=== PATIENT | male | born 1965 | race Caucasian/White ===

== ENCOUNTER 2018-09-26 10:33 | Outpatient (CLI) | payer MEDICAID, SELFPAY ==
--- NOTE | 2018-09-26 10:30 | DI.RAD_ITS ---
SYMPTOM/DIAGNOSIS: LOCKING AND CLICKING RT KNEE, LT FOR COMPARISON RIGHT KNEE: The joint spaces are well maintained. No joint effusion is seen. A small calcification is seen in the distal patellar tendon, near the tibial tubercle. IMPRESSION: No acute abnormality. MERCHANT VIEWS BOTH KNEES: The joint spaces are well maintained. There is minimal periarticular spurring. The patella appear normally positioned bilaterally.
== END 2018-09-26 10:53 ==
PROVIDERS: PCP Nurse Practitioner; Visit Provider Student in an Organized Health Care Education/Training Program
DX: M25.561 Pain in right knee (principal); M23.91 Unspecified internal derangement of right knee
CPT/HCPCS: 73560; 73564

== ENCOUNTER 2019-08-03 14:35 | Outpatient (CLI) | payer BC, SELFPAY ==
[2019-08-03 16:08] LABS: ALT 44 U/L (16-63); AST 21 U/L (15-37); Albumin 4.3 g/dL (3.4-5.0); Alkaline Phosphatase 87 U/L (46-116); BUN 13 mg/dL (7-18); Bilirubin, Total 0.9 mg/dL (0.2-1.0); CREATININE 1.12 mg/dL (0.70-1.30); Calcium 8.6 mg/dL (8.5-10.1); Chloride 102 mmol/L (98-107); Glucose 89 mg/dL (74-106); Potassium 4.3 mmol/L (3.5-5.1); Sodium 140 mmol/L (136-145)
== END 2019-08-03 14:55 ==
PROVIDERS: PCP Nurse Practitioner Adult Health; Visit Provider Nurse Practitioner Adult Health
DX: I10 Essential (primary) hypertension (principal)
CPT/HCPCS: 36415; 80053

== ENCOUNTER 2021-10-08 16:52 | Outpatient (REF) | payer BC, SELFPAY ==
[2021-10-08 19:47] LABS: Anion Gap 7.1 mmol/L (3-11); BUN 18 mg/dL (7-18); CO2 28.9 mmol/L (21.0-32.0); CREATININE 1.1 mg/dL (0.70-1.30); Calcium 8.6 mg/dL (8.5-10.1); Calculated LDL 112 mg/dL (<100); Chloride 105 mmol/L (98-107); Cholesterol 184 mg/dL (<200); Glucose 95 mg/dL (74-106); HDL Cholesterol 54 mg/dL (40-60); Potassium 4.3 mmol/L (3.5-5.1); Sodium 141 mmol/L (136-145); Triglyceride 93 mg/dL (<150)
== END 2021-10-08 16:53 | disposition home or self-care (01) ==
LOC: LBN 16:52
PROVIDERS: PCP Nurse Practitioner Adult Health; Visit Provider Nurse Practitioner Adult Health
DX: I10 Essential (primary) hypertension (principal); Z13.1 Encounter for screening for diabetes mellitus; Z13.220 Encounter for screening for lipoid disorders
CPT/HCPCS: 80048; 80061

== ENCOUNTER 2022-04-29 10:33 | Emergency (ER) | payer OTHER, SELFPAY ==
[2022-04-29] VITALS (41 sets, daily range): BP systolic 107–134; BP diastolic 63–95; PULSE 53–81; RESP 8–20; TEMP 36.5; O2SAT 95–100
--- NOTE | 2022-04-29 10:30 | DI.MRI_ITS ---
Exam(s) MR ANGIO BRAIN WO MR BRAIN WO MR ANGIO NECK WO EXAM: MR BRAIN WO and MRA of the neck and MRA of the brain CLINICAL HISTORY: tia TECHNIQUE: Multiplanar multisequence MRI of the brain was performed. COMPARISON: MR MR ANGIO BRAIN WO from 04/29/2022 MR MR ANGIO NECK WO from 04/29/2022 FINDINGS: VENTRICLES AND EXTRA AXIAL SPACES: Normal in size and morphology for the patient's age. MIDLINE SHIFT: None. CEREBRAL PARENCHYMA: No focus of restricted diffusion to suggest acute infarct. No space-occupying le javi identified. HEMORRHAGE: None. BRAINSTEM/CEREBELLUM: Normal. CALVARIUM: Normal. VISUALIZED PARANASAL SINUSES/MASTOIDS:Clear. EEK OF GALVAN: Normal flow void. PITUITARY GLAND: Unremarkable. OTHER FINDINGS: None. MRA of the neck: Common Carotid: Right: No dissection, occlusion or significant stenosis. Left: No dissection, occlusion or significant stenosis. External Carotid: Right: No evidence of occlusion or significant stenosis. Left: No evidence of occlusion or significant stenosis. Internal Carotid: Right: No dissection, occlusion or significant stenosis. Left: No dissection, occlusion or significant stenosis. Vertebral Artery: Right: No dissection, occlusion or significant stenosis. Left: No dissection, occlusion or significant stenosis. MRA of the [id number]: Carotid Arteries: No aneurysm, occlusion or significant stenosis. Anterior Cerebral Arteries: Right: No aneurysm, occlusion or significant stenosis. Left: No aneurysm, occlusion or significant stenosis. Middle Cerebral Arteries: Right: No aneurysm, occlusion or significant stenosis. Left: No aneurysm, occlusion or significant stenosis. Posterior Cerebral Arteries: Right: No aneurysm, occlusion or significant stenosis. Left: No aneurysm, occlusion or significant stenosis. Vertebral Arteries: Right: No aneurysm, occlusion or significant stenosis. Left: No aneurysm, occlusion or significant stenosis. Basilar Artery: No aneurysm, occlusion or significant stenosis. IMPRESSION: 1. Unremarkable MRI of the brain. 2. No occlusion or significant stenosis on the MRA of the neck or brain. 3. Findings were discussed with the emergency department at 12:07 p.m. on 04/29/2022. DATA REPOSITORY:
--- NOTE | 2022-04-29 10:30 | DI.MRI_ITS ---
Exam(s) MR ANGIO BRAIN WO MR BRAIN WO MR ANGIO NECK WO EXAM: MR BRAIN WO and MRA of the neck and MRA of the brain CLINICAL HISTORY: tia TECHNIQUE: Multiplanar multisequence MRI of the brain was performed. COMPARISON: MR MR ANGIO BRAIN WO from 04/29/2022 MR MR ANGIO NECK WO from 04/29/2022 FINDINGS: VENTRICLES AND EXTRA AXIAL SPACES: Normal in size and morphology for the patient's age. MIDLINE SHIFT: None. CEREBRAL PARENCHYMA: No focus of restricted diffusion to suggest acute infarct. No space-occupying le javi identified. HEMORRHAGE: None. BRAINSTEM/CEREBELLUM: Normal. CALVARIUM: Normal. VISUALIZED PARANASAL SINUSES/MASTOIDS:Clear. [place] OF GALVAN: Normal flow void. PITUITARY GLAND: Unremarkable. OTHER FINDINGS: None. MRA of the neck: Common Carotid: Right: No dissection, occlusion or significant stenosis. Left: No dissection, occlusion or significant stenosis. External Carotid: Right: No evidence of occlusion or significant stenosis. Left: No evidence of occlusion or significant stenosis. Internal Carotid: Right: No dissection, occlusion or significant stenosis. Left: No dissection, occlusion or significant stenosis. Vertebral Artery: Right: No dissection, occlusion or significant stenosis. Left: No dissection, occlusion or significant stenosis. MRA of the [id number]: Carotid Arteries: No aneurysm, occlusion or significant stenosis. Anterior Cerebral Arteries: Right: No aneurysm, occlusion or significant stenosis. Left: No aneurysm, occlusion or significant stenosis. Middle Cerebral Arteries: Right: No aneurysm, occlusion or significant stenosis. Left: No aneurysm, occlusion or significant stenosis. Posterior Cerebral Arteries: Right: No aneurysm, occlusion or significant stenosis. Left: No aneurysm, occlusion or significant stenosis. Vertebral Arteries: Right: No aneurysm, occlusion or significant stenosis. Left: No aneurysm, occlusion or significant stenosis. Basilar Artery: No aneurysm, occlusion or significant stenosis. IMPRESSION: 1. Unremarkable MRI of the brain. 2. No occlusion or significant stenosis on the MRA of the neck or brain. 3. Findings were discussed with the emergency department at 12:07 p.m. on 04/29/2022. DATA REPOSITORY:
--- NOTE | 2022-04-29 10:30 | DI.MRI_ITS ---
Exam(s) MR ANGIO BRAIN WO MR BRAIN WO MR ANGIO NECK WO EXAM: MR BRAIN WO and MRA of the neck and MRA of the brain CLINICAL HISTORY: tia TECHNIQUE: Multiplanar multisequence MRI of the brain was performed. COMPARISON: MR MR ANGIO BRAIN WO from 04/29/2022 MR MR ANGIO NECK WO from 04/29/2022 FINDINGS: VENTRICLES AND EXTRA AXIAL SPACES: Normal in size and morphology for the patient's age. MIDLINE SHIFT: None. CEREBRAL PARENCHYMA: No focus of restricted diffusion to suggest acute infarct. No space-occupying le javi identified. HEMORRHAGE: None. BRAINSTEM/CEREBELLUM: Normal. CALVARIUM: Normal. VISUALIZED PARANASAL SINUSES/MASTOIDS:Clear. [place] OF GALVAN: Normal flow void. PITUITARY GLAND: Unremarkable. OTHER FINDINGS: None. MRA of the neck: Common Carotid: Right: No dissection, occlusion or significant stenosis. Left: No dissection, occlusion or significant stenosis. External Carotid: Right: No evidence of occlusion or significant stenosis. Left: No evidence of occlusion or significant stenosis. Internal Carotid: Right: No dissection, occlusion or significant stenosis. Left: No dissection, occlusion or significant stenosis. Vertebral Artery: Right: No dissection, occlusion or significant stenosis. Left: No dissection, occlusion or significant stenosis. MRA of the [id number]: Carotid Arteries: No aneurysm, occlusion or significant stenosis. Anterior Cerebral Arteries: Right: No aneurysm, occlusion or significant stenosis. Left: No aneurysm, occlusion or significant stenosis. Middle Cerebral Arteries: Right: No aneurysm, occlusion or significant stenosis. Left: No aneurysm, occlusion or significant stenosis. Posterior Cerebral Arteries: Right: No aneurysm, occlusion or significant stenosis. Left: No aneurysm, occlusion or significant stenosis. Vertebral Arteries: Right: No aneurysm, occlusion or significant stenosis. Left: No aneurysm, occlusion or significant stenosis. Basilar Artery: No aneurysm, occlusion or significant stenosis. IMPRESSION: 1. Unremarkable MRI of the brain. 2. No occlusion or significant stenosis on the MRA of the neck or brain. 3. Findings were discussed with the emergency department at 12:07 p.m. on 04/29/2022. DATA REPOSITORY:
--- NOTE | 2022-04-29 10:45 | RT.EKG_ITS ---
APPROVED REPORT Exam: Resting ECG Reason for Exam: headache numbness right leg and arm Patient Location: E HR:57 bpm ECG Measurements Heart Rate 57 AXIS NM 169 P 61 QRSd 97 QRS 40 QT 423 T 38 QTc 412 Conclusion Sinus bradycardia...rate< 60
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
[2022-04-29 10:55] LABS: Source Nasal/Nares
--- NOTE | 2022-04-29 10:56 | NUR.NOTE ---
Nursing Note: PT TO MRI, UNABLE TOGET EKG PRIOR TO MRI D/T MRI SCHEDULE. PT W/O CHEST PAIN, PROVIDER AWARE.
[2022-04-29 10:58] LABS: Abs Immature Grans 0.02 10^3/uL (0.0-0.06); Absolute Basophil Count 0.03 10^3/uL (0.0-0.2); Absolute Eosinophil Count 0.15 10^3/uL (0.0-0.7); Absolute Lymphocyte Count 1.35 10^3/uL (1.2-3.4); Absolute Monocyte Count 0.61 10^3/uL (0.1-0.8); Absolute Neutrophil Count 3.12 10^3/uL (1.2-6.7); Basophils % 0.6; Eosinophils % 2.8; HCT 42.9 % (40.0-50.0); HGB 14.2 g/dL (13.5-17.5); Immature Grans % 0.4; Lymphocytes % 25.6; MCH 29.5 pg (27.0-33.0); MCHC 33.1 % (32.0-36.0); MCV 89 fL (80-95); MPV 11.2 fL (8.0-11.0); Monocytes % 11.6; Platelet Count 174 10^3/uL (130-400); RBC 4.82 10^6/uL (4.36-5.78); RDW 12.2 % (11.8-14.1); RDW-SD 39.8 fL; WBC 5.28 10^3/uL (4.4-10.8)
[2022-04-29 11:11] LABS: Prothrombin Time 10.5 sec (9.3-11.0)
[2022-04-29 11:22] LABS: ALT 19 U/L (16-63); AST 16 U/L (15-37); Albumin 4.1 g/dL (3.4-5.0); Alkaline Phosphatase 123 U/L (46-116); Anion Gap 5.1 mmol/L (3-11); BUN 10 mg/dL (7-18); Bilirubin, Total 0.6 mg/dL (0.2-1.0); CO2 31.9 mmol/L (21.0-32.0); CREATININE 1.1 mg/dL (0.70-1.30); Calcium 8.7 mg/dL (8.5-10.1); Chloride 103 mmol/L (98-107); Estimated GFR 78.79 (mL/min/1.73m2); Glucose 76 mg/dL (74-106); Magnesium 2.3 mg/dL (1.8-2.4); Potassium 3.9 mmol/L (3.5-5.1); Sodium 140 mmol/L (136-145); Total Protein 7.1 g/dL (6.4-8.2); Troponin I < 50 ng/L (<or=60)
[2022-04-29 11:34] LABS: COVID-19 PCR Negative (Negative)
--- NOTE | 2022-04-29 11:58 | NUR.NOTE ---
Nursing Note: PT RETURN FROM MRI, STATES 'FEELS SOME NUMBNESS IN LEFT SIDE' EKG DONE AT THIS TIME.
[2022-04-29] MEDS: Ketorolac 15 MG/ML VIAL IVP (12:21)
--- NOTE | 2022-04-29 12:29 | NUR.NOTE ---
Nursing Note: PT MEDICATED FOR C/O SCOTT, PROVIDER IN TO SEE PT PER REQUEST, CONT. TO MONITOR.
--- NOTE | 2022-04-29 12:49 | NUR.NOTE ---
Nursing Note: PT STATES SCOTT HAS IMPROVED W/TORADOL, DENIES ANY CHANGE OR NEW SYMPTOMS AT THIS TIME, AWAITING CARDIAC ECHO AT 1PM, CONT. TO MONITOR.
--- NOTE | 2022-04-29 13:47 | NUR.NOTE ---
Nursing Note: ECHO COMPLETED, PT DENIES CURRENT COMPLAINTS, STATES SCOTT HAS IMPROVED, AWAITING ECHO RESULTS, CONT. TO MONITOR.
[2022-04-29 14:51] LABS: Troponin I < 50 ng/L (<or=60)
== END 2022-04-29 15:27 | disposition home or self-care (01) ==
PROVIDERS: Emergency Provider Emergency Medicine; PCP Nurse Practitioner Adult Health
DX: R20.0 Anesthesia of skin (principal); R20.2 Paresthesia of skin; Z20.822 Contact with and (suspected) exposure to COVID-19
CPT/HCPCS: 36415; 70544; 70547; 80053; 87635; 93005; 96374; 99284; 70551; 83735; 84484; 85025; 85610; 85730; 93010; 93306; 99285; J1885

== ENCOUNTER 2022-05-08 13:01 | Outpatient (CLI) | payer OTHER, SELFPAY ==
[2022-05-08 13:22] LABS: ESR < 1 mm/hr (0-20)
[2022-05-08 14:19] LABS: C-Reactive Protein < 0.05 mg/dL (0.0-0.3)
[2022-05-08 14:57] LABS: Folate 15.9 ng/mL (8.6-20.0); Vitamin B12 641 pg/mL (193-986)
[2022-05-12 11:13] LABS: Lyme Ab w Rflx to Lyme Confirm Negative (Negative)
[2022-05-14 10:41] LABS: Thiamine (Vitamin B1), WB 112 nmol/L (70-180)
[2022-05-14 18:21] LABS: Anaplasma phagocytophilum Negative (Negative); B. miyamotoi PCR Negative (Negative); Babesia divergens/MO-1 Negative (Negative); Babesia duncani Negative (Negative); Babesia microti Negative (Negative); Ehrlichia chaffeensis Negative (Negative); Ehrlichia ewingii/canis Negative (Negative); Ehrlichia muris eauclairensis Negative (Negative)
== END 2022-05-08 13:02 | disposition home or self-care (01) ==
LOC: LBO 13:03
PROVIDERS: PCP Nurse Practitioner Adult Health; Visit Provider Nurse Practitioner Adult Health
DX: R20.2 Paresthesia of skin (principal); M79.2 Neuralgia and neuritis, unspecified; M54.16 Radiculopathy, lumbar region; L98.8 Other specified disorders of the skin and subcutaneous tissue; R51.9 Headache, unspecified; I10 Essential (primary) hypertension; G45.9 Transient cerebral ischemic attack, unspecified
CPT/HCPCS: 36415; 85652; 87798; 82607; 82746; 84425; 86140; 86618

== ENCOUNTER 2022-05-13 12:03 | Outpatient (REF) | payer OTHER, SELFPAY ==
--- NOTE | 2022-05-13 11:25 | SKI_PTH ---
PATIENT: Lc Hoyt LOC: [facility] U#:[id number] AGE/SX: 56/M ROOM: RE05/13/[address]: Say Bruce MD : 1965 BED: DIS: 05/13/2022 SPEC #: [id number] RECD: 05/13/22 14:41 STATUS: CAITLYN REQ #: [id number] BROOK: 05/13/22 11:[address]: Say Bruce DEPT: Surgical Specimen RECD BY: Sadia Ramírez ENTERED: 05/13/22 14:42 SP TYPE: TINO LUNA DR: Lara Simeon APRN Tissues: 1 - SKIN BIOPSY(SHAVE/PUNCH) Procedures: SKIN LEVEL 4 Comments: [id number]
== END 2022-05-13 12:04 | disposition home or self-care (01) ==
LOC: LBN 12:03
PROVIDERS: PCP Nurse Practitioner Adult Health; Visit Provider Surgery
DX: L73.8 Other specified follicular disorders
CPT/HCPCS: 88305

== ENCOUNTER 2024-01-07 14:21 | Outpatient (CLI) | payer OTHER, SELFPAY ==
[2024-01-07 11:15] LABS: Hemoglobin A1C 5.5 % (<5.7)
[2024-01-07 11:16] LABS: ALT 21 U/L (16-63); AST 15 U/L (15-37); Albumin 4.1 g/dL (3.4-5.0); Alkaline Phosphatase 107 U/L (46-116); Anion Gap 4.9 mmol/L (3-11); BUN 15 mg/dL (7-18); CO2 30.1 mmol/L (21.0-32.0); Calcium 8.8 mg/dL (8.5-10.1); Calculated LDL 115 mg/dL (<100); Chloride 105 mmol/L (98-107); Cholesterol 190 mg/dL (<200); Estimated GFR 87.24 (mL/min/1.73m2); Glucose 91 mg/dL (74-106); HDL Cholesterol 69 mg/dL (40-60); Potassium 4.1 mmol/L (3.5-5.1); Sodium 140 mmol/L (136-145); TSH (W/Ref FT4) 2.09 uIU/mL (0.36-3.74); Total Protein 7.1 g/dL (6.4-8.2); Triglyceride 31 mg/dL (<150)
--- OUTSIDE RECORDS SUMMARY | 2024-01-07 14:23 | XMS_ITS | Encounter Summary ---
Author Organization [facility] Address [address] [place] [address] Care Team Providers Care Safety Specialist Name Role Phone Unknown, Provider Primary Care Provider Encounter Details Date Type Department Care Team (Late st Contact Info) Description 05/14/2022 Lab Requisition [facility] Pathology & Laboratory Medicine - [address] [phone] Say Bruce MD [address] [place] [address], [address] [place], [place] [id number] Neoplasm of uncertain behavior of skin Social History Tobacco Use Types Packs/Day Years Used Date Smoking Tobacco: Never Assessed Sex and Gender Information Value Date Recorded Sex Assigned at Not on file Gender Identity Not on file Sexual Orientation Not on file documented as of this encounter Plan of Treatment Not on file documented as of this encounter Procedures Procedure Name Priority Date/Time Associated Diagnosis Comments SURGICAL PATHOLOGY Today 05/13/2022 11 :25 EST Neoplasm of uncertain behavior of skin documented in this encounter Results * SURGICAL PATHOLOGY (05/13/2022 11:25 EST) Note to Patient The following pathology results have been interpreted by your pathologist and may be available to you before your health provider has had the opportunity to review them. Please allow time for your provider to receive these results and explore management options, if applicable. 05/19/2022 10:34 EST [facility] Final Diagnosis A. SKIN OF FOREARM, RIGHT, EXCISION: - Dilated and distorted follicle with rupture. 05/19/2022 10:34 EST [facility] Attestation By the signature below, the attending physician certifies that they have 1) personally conducted a gross and/or microscopic examination of the described specimen(s), and/or personally interpreted the results of laboratory testing of the described specimen(s), and 2) personally rendered or confirmed the above diagnosis. 05/19/2022 10:34 [facility] at 1034 Clinical History Skin lesion suture @ proximal 05/19/2022 10:34 [facility] Gross Description A. Received in formalin labelled with proper patient identification (initials H, K) and R forearm is an oriented elliptical excision of ross-brown hair-bearing skin with a suture designating proximal, however the requisition does not state where on the right forearm the specimen is from, thus the suture is arbitrarily designated as 12 o'clock. The specimen measures 1.8 cm from 12 o'clock to 6 o'clock, 0.8 cm from 9 o'clock to 3 o'clock, and is excised to a depth of 0.5 cm. There is a central roughly circular raised ross-white area that measures 0.5 x 0.5 cm. The 3 o'clock margin is inked blue and the 9 o'clock margin is inked black. The specimen is serially sectioned from 12 o'clock to 6 o'clock and is entirely submitted as follows: BLOCK ROSE A1- 12 o'clock tip, reverse en face A2-A3- 5 central sections A4- 6 o'clock tip, reverse en face SERGEY AGUIRRE 05/15/2022 8:19 05/19/2022 10:34 [facility] Performing Lab [facility] 05/19/2022 10:34 [facility] Scanned Images 05/19/2022 10:34 [facility] Tissue TISSUE SPECIMEN FROM SKIN / Unknown 05/13/2022 11:25 EST 05/14/2022 15:35 EST Say Bruce MD PATHOLOGY ORDERABLES [facility] [address] [place] [address] documented in this encounter Visit Diagnoses Diagnosis Neoplasm of uncertain behavior of skin documented in this encounter Care Teams Safety Specialist Relationship Specialty Start Date End Date Unknown, Provider, PCP - General 04/16/22 documented as of this encounter
--- OUTSIDE RECORDS SUMMARY | 2024-01-07 14:23 | XMS_ITS | Encounter Summary ---
Author Organization [facility] Address [address] [place] [address] Care Team Providers Care Recycling Collections Driver Name Role Phone Unknown, Provider Primary Care Provider [phone] Encounter Details Date Type Department Care Team (Late st Contact Info) Description 01/07/2024 Lab Requisition [facility] Pathology & Laboratory Medicine - [address] [address] Outr Resulting Lab, Provider Social History Tobacco Use Types Packs/Day Years Used Date Smoking Tobacco: Never Assessed Sex and Gender Information Value Date Recorded Sex Assigned at Not on file Gender Identity Not on file Sexual Orientation Not on file documented as of this encounter Plan of Treatment Scheduled Orders Name Type Priority Associated Diagnoses Orde r Schedule HEPATITIS C AB W REFLEX TO H CV RNA BY PCR Lab Routine Ordered: 024 PSA TOTAL, DIAGNOSTIC Lab Routine Ord ered: 01/07/2024 documented as of this encounter Visit Diagnoses Not on filedocumented in this encounter Care Teams Recycling Collections Driver Relationship Specialty Start Date End Date Unknown, Provider, PCP - General 04/16/22 documented as of this encounter
--- OUTSIDE RECORDS SUMMARY | 2024-01-07 14:23 | XMS_ITS | Encounter Summary ---
Author Organization [facility] [place] [address] Care Team Providers Care Nutritional Services Cook Name Role Phone Lara Simeon APRN Primary Care Provider [phone] Reason for Visit * Reason Comments Travel Consult Encounter Details Date Type Department Care Team (Late st Contact Info) Description 11/03/2012 2:30 PM EDT Office [place] [phone] Jazzmine Jerez RN Foreign travel (Primary Dx); Healthcare maintenance Discharge Disposition: Home Social History Tobacco Use Types Packs/Day Years Used Date Smoking Tobacco: Never Sex and Gender Information Value Date Recorded Sex Assigned at Not on file Gender Identity Not on file Sexual Orientation Not on file documented as of this encounter Last Filed Vital Signs Vital Sign Reading Time Taken Comments Blood Pressure 135/91 11/03/2012 2:38 PM EDT Pulse 93 11/03/2012 2:38 PM EDT Temperature 36.6 ??C (97.8 ??F) 11/03/2012 2:38 PM ED T Respiratory Rate 16 11/03/2012 2:38 PM EDT Oxygen Saturation - - Inhaled Oxygen Concentration - - Weight - - Height - - Body Mass Index - - documented in this encounter Patient Instructions * Patient Instructions* Jazzmine Jerez RN - 11/03/2012 4:07 PM EDT Today, you received the following vaccines: [] Flu shot (recommended annually) [] TDaP (good for 10 years) [] Td (good for 10 years) [] Hepatitis A* (first dose good for 6 months, need a booster anytime after 6 months) [] Hepatitis B* (series is a total of 3) [x] IPV (polio - this is your adult lifetime booster) [] Meningococcal meningitis [] Pneumococcal [] Rabies* (series is a total of 3, Day 1, Day 7, and Day 21) [x] Yellow fever (good for 10 yrs. Keep your yellow card w/ you when traveling as proof) [] Ukrainian Encephalitis* (series of 2, Day 1 and Day 28) [x] Typhoid IM (good for 2-3 years) [] Typhoid oral (Take 1 capsule every other day on am empty stomach x 4 doses. Keep in fridge. Goodfor 5 years) (x) Twinrix *Please remember to schedule your follow-up boosters, if indicated. Call us at [phone] to schedule an appointment for these vaccines. Today, you were also prescribed a medication for malaria prevention. [] Malarone - Start taking 1 day prior to travel to malaria risk area. Take daily while there and for 7 more additional days thereafter. Take this medication with food. [x] Mefloquine or Chloroquine - Start 1 week prior to travel to a malaria risk area. Take once weekly while there and for 4 additional weeks thereafter. [] Doxycycline - Start 1 day prior to travel to malaria risk area. Take daily while there and for 28 additional days thereafter. Additional Recommendations/Instructions: We recommend a tuberculin skin test (TST) to screen for tuberculosis exposure about 2 - 3 months after your trip. Call us at [phone] to book this upon your return. Have a great trip! documented in this encounter Progress Notes * Jesus Reyez MD - 11/04/2012 3:22 PM EDT I agree with the recommendations of Jazzmine Jerez after review of her note. * Jazzmine Jerez RN - 11/03/2012 2:50 PM EDT Adult Travel Clinic Reason for Visit: Lc Hoyt is a 46 y.o. old patient who comes to travel clinic today for pre-travel evaluation, vaccination and traveler's health education. Trip Details: Destination countries (list from first to last): [facility] Departure date: 12/03/2012 Length of trip: 2 weeks Purpose of travel: orphanage and school; massage therapy; mission Type of environment (urban or rural): more rural Accommodations: staying in orphanage; will use mosquito net Medical History: Medical problems: healthy Immunosuppression: No recent steroid use; chemotherapy or other immunosuppresion. History of adverse vaccine reactions: None. History of latex allergy: None. Medications: Current Outpatient Prescriptions Medication Sig Dispense Refill ??? lisinopril-hydrochlorothiazide (PRINZIDE;ZESTORETIC) 10-12.5 mg per tablet Take 1 tablet by mouth daily. ??? FOLIC ACID/VITAMIN B COMP W-C (B-COMPLEX WITH VITAMIN C ORAL) Allergies: Review of patient's allergies indicates no known allergies. Patient advised to carry all medications in carry on luggage. Travel Health and Safety Issues: A discussion of travel health hazards and safety issues was done, including the following topics: (x) Traffic-accidents (alcohol, seatbelts) (x) Crime (x) Alcohol related issues (x) Sun exposure/heat illness (x) Schistosomiasis and other fresh water exposures (x) Rabies (x) HIV infections, Hepatitis (x) TB (x) Health insurance coverage/[employer] (x) Other: embassy information Discussed food and water precautions and patient handout provided. The following strategies were recommended for the management of traveler's diarrhea according to severity: For treatment of mild diarrhea: hydration and over the counter antidiarrheal recommended. For treatment of diarrhea accompanied by fever or systemic illness: hydration and empiric treatmentwith antibiotic recommended. A prescription for cipro, twice daily for three days,sent to [facility] in [facility]. For severe or bloody diarrhea, or diarrhea accompanied by vomiting: patient advised to seek medicaltreatment. Vector-borne Disease Prevention Discussed insect bite prevention to reduce risk of malaria, dengue and other insect borne illnesses. Handout given. Malaria Risk: (x) Significant risk of malaria on this itinerary. Discussed malaria chemoprophylaxis and possible side effects. Prescription for: mefloquine was sent to [facility] in [facility]; Took mefloquine for a past trip to [place] and tolerated well Altitude: (x) This trip does not involve high altitude. . Follow-up Recommendations: A recommendation was made that the patient have a tst placed about 3 months after returning from this trip. The patient may either call the travel clinic or get this done through their primary career advisor. Patient advised to call travel clinic if they return from trip with any illness. Time spent in travel counselin min Note written by JAZZMINE JEREZ RN Travel Clinic Immunization History and Orders Immunizations Last dose Give today Give at future date Tetanus/diphtheria (0.5 ml IM) 05/17/2004 Td refused Tdap MMR (0.5 ml IM) MMR Refused dose #2; (may have had) Polio (0.5 ml SC) Primary series 11/03/2012 Hepatitis A (Adult-1.0 ml IM) (Pedi-0.5 ml IM) 1. 2. 1. 2. Immune serum globulin (specify route/dose) Hepatitis B (adult-1 ml IM X 3) (pedi-0.5 ml IM X 3) 1. 2. 3. 1. 2. 3. Twinrix (Hep A/B) (1.0 ml IM) 1.11/03/2012 2. 3. 1. 2.one month (will contact PCP office) 3.6 months (PCP office) Typhoid (specify route/dose) 11/03/2012 IM Yellow fever (0.5 ml IM) 11/03/2012 Meningococcal (0.5 ml IM) Rabies (specify type/dose) 1.discussed actions to take if exposed; not sure if he has evacuation insurance- will look into it 2. 3. 1. 2. 3. Ukrainian Encephalitis 1. 2. 3. 1. 2. 3. Influenza (0.5 ml IM) Did not have; does not believe in flu shot; education provided Pneumovax (0.5 ml IM) Other: PPD (Mantoux) (0.1 ml ID) Will have post travel PPD Vaccine information sheets given. documented in this encounter Plan of Treatment Not on file documented as of this encounter Visit Diagnoses Diagnosis Foreign travel- Primary Other specified conditions influencing health status Healthcare maintenance Routine general medical examination at a health care facility documented in this encounter Care Teams Nutritional Services Cook Relationship Specialty Start Date End Date Lara Simeon APRN [address] [place] [address] PCP - General 10/17/12 documented as of this encounter
--- OUTSIDE RECORDS SUMMARY | 2024-01-07 14:23 | XMS_ITS | Encounter Summary ---
[place] [address] Care Team Providers Care Acid Recovery Operator Name Role Phone Lara Simeon APRN Primary Care Provider [phone] Reason for Referral * Diagnostic Test (Routine) - Closed Specialty Diagnoses / Procedures Referred By Damian joseph Referred To Contact Cardiology Diagnoses TIA (transient ischemic attack) Procedures Mobile Shawn Ramos MD [address] [place] [address] [place] [address] [facility] [place] [address] Referral ID Status Reason Start Date Expiration Date V isits Requested Visits Authorized [id number] Closed Specialty Service Requested 04/29/2022 04/29/2023 1 1 Reason for Visit * Diagnostic Test (Routine) - Closed Specialty Diagnoses / Procedures Referred By Contac t Referred To Contact Cardiology Diagnoses TIA (transient ischemic attack) Procedures Mobile Shawn Ramos MD [address] [place] [address] [place] [address] [facility] [place] [address] Referral ID Status Reason Start Date Expiration Date V isits Requested Visits Authorized [id number] Closed Specialty Service Requested 04/29/2022 04/29/2023 1 1 Encounter Details Date Type Department Care Team (Latest Contact Info) Description 04/29/2022 2:18 PM EST - 04/29/2022 11:59 PM EST Hospital Encounter [place] [address] Shawn Hurtado MD [address] [place] [address] [place] [id number] TIA (transient ischemic attack) Discharge Disposition: Home Social History Tobacco Use Types Packs/Day Years Used Date Smoking Tobacco: Never Sex and Gender Information Value Date Recorded Sex Assigned at Not on file Gender Identity Not on file Sexual Orientation Not on file documented as of this encounter Medications at Time of Discharge Medication Sig Dispensed Refills Start Date End Date lisinopril (PRINIVIL;ZESTRIL) 10 mg Tablet Take 10 mg by mouth daily. atovaquone-proguanil (MALARONE) 250-100 mg Tablet Take 1 tablet by mouth daily. Start day before travel to risk area, daily while there & for 7 days after 22 tablet 0 05/15/2014 FOLIC ACID/VITAMIN B COMP W-C (B-COMPLEX WITH VITAMIN C ORAL) 02/13/2009 documented as of this encounter Plan of Treatment Not on file documented as of this encounter Procedures Procedure Name Priority Date/Time Associated Diagnosis Comments ECHO COMPLETE Routine 04/29/2022 2:58 PM EST TIA (transient ischemic attack) documented in this encounter Results * ECHO COMPLETE (04/29/2022 2:58 PM EST) Pathologist [facility] EF 60 HEARTLAB SYSTEM Anatomical Region Laterality Modality Other 04/29/2022 12:3 9 PM EST Narrative 04/29/2022 3:02 PM EST ? Echocardiogram Report Name: ION GROVER ? Study Date: 04/29/2022 12:39 PMBP: 127/80 mmHg ? Patient Location: 4A [facility] : 1965 ? Height: 173 cm ? Account: [id number] Age: 56 yrs ? Weight: 73 kg Gender: Male ?BSA: 1.9 m2 Ordering Physician: GENESIS^SHAWN^Nilay Referring Physician: SHAWN HURTADO Performed By: NATALI Reason For Study: Stroke Exam Location: [facility]. Interpretation Summary -Technically limited study due to equipment/settings. -Left ventricular systolic function is normal. Left ventricular ejection fraction is estimated visually at 60%. There are no segmental wall motion abnormalities. -The right ventricle is of normal size. Right ventricular systolic function is normal. -There is mild tricuspid regurgitation. -See report for additional findings. No comparison study is available. Procedure Complete-[id number]. An agitated saline bubble contrast study was performed. This study is limited because of body habitus. Suboptimal quality. Left Ventricle Left ventricle is of normal size. Wall thickness is normal. There is no ventricular septal defect. Left ventricular systolic function is normal. Left ventricular ejection fraction is estimated visually at 60%. There are no segmental wall motion abnormalities. Right Ventricle The right ventricle is of normal size. Right ventricular systolic function is normal. Left Atrium The left atrium is normal. No abnormality of the interatrial septum is identified. There is no evidence for a patent foramen ovale visualized with agitated saline. Right Atrium The right atrium is normal. Aortic Valve The aortic valve is structurally normal. There is no aortic stenosis. There is no aortic regurgitation. Mitral Valve The mitral valve is structurally normal. There is no mitral stenosis. There is trace mitral regurgitation. Tricuspid Valve The tricuspid valve is structurally normal. There is no tricuspid stenosis. There is mild tricuspid regurgitation. Pulmonic Valve The pulmonic valve is not well visualized. There is no valvular pulmonic stenosis. There is no pulmonic valve regurgitation. Great Arteries The aortic root is of normal size. No abnormalities are identified. The ascending aorta is not well visualized. The pulmonary artery is not well visualized. Venous Inferior vena cava is normal in size. Inferior vena cava collapse greater than 50% with respiration. Pericardium/Pleural The pericardium appears normal. Hemodynamics Left ventricular diastolic function is normal. The estimated right atrial pressure is 3mmHg. The peak right ventricular systolic pressure is 20 mmHg. Left ventricular diastolic function is normal. Ejection Fraction ?2D Measurements ? Volumes LV Biplane EF: 57.6 % ? IVSd: 1.0 cm ? EDV Biplane: 97.2 ml ?LVPWd: 1.0 cm ?EDV Biplane Index: 52.1 ? ESV Biplane: 41.2 ml ? ESV Biplane Index: 22.1 Doppler TR max deuce: 205.3 cm/sec RVSP(TR): 19.9 mmHg LV V1 VTI: 20.2 cm Ao V2 VTI: 22.7 cm Ao Max: 114.1 cm/sec Ao valve max: 5.2 mmHg MV E max deuce: 69.7 cm/sec MV A max deuce: 55.3 cm/sec MV E/A: 1.3 Dimensionless index Aov: 0.89 I ?WMSI = 1.00 ? % Normal = 100 ?Segments ??Size X - Cannot ?2 - ?4 - ?1-2 ? small Interpret ?1 - Normal ?? Hypokinetic 3 - Akinetic Dyskinetic ?? 3-5 ? moderate 5 - ? 6-14 ?large Aneurysmal ?15-16 ?? diffuse Procedure Note Jose John MD - 04/29/2022 Echocardiogram Report Name: ION GROVER Study Date:04/29/2022 12:39 PMBP: 127/80 mmHg Patient Location: [id number] : 1965 Height: 173 cm Account: [id number] Age: 56 yrs Weight: 73 kg Gender: Male BSA: 1.9 m2 Ordering Physician: JEANNETTE Referring Physician: SHAWN HURTADO Performed By: NATALI Reason For Study: Stroke Exam Location: [facility]. Interpretation Summary -Technically limited study due to equipment/settings. -Left ventricular systolic function is normal. Left ventricular ejectionfraction is estimated visually at 60%. There are no segmental wall motionabnormalities. -The right ventricle is of normal size. Right ventricular systolicfunction is normal. -There is mild tricuspid regurgitation. -See report for additional findings. No comparison study is available. Procedure Complete-[id number]. An agitated saline bubble contrast study was performed.This study is limited because of body habitus. Suboptimal quality. Left Ventricle Left ventricle is of normal size. Wall thickness is normal. There is no ventricular septal defect. Left ventricular systolic function is normal.Left ventricular ejection fraction is estimated visually at 60%. There are nosegmental wall motion abnormalities. Right Ventricle The right ventricle is of normal size. Right ventricular systolic functionis normal. Left Atrium The left atrium is normal. No abnormality of the interatrial septum isidentified. There is no evidence for a patent foramen ovale visualized with agitatedsaline. Right Atrium The right atrium is normal. Aortic Valve The aortic valve is structurally normal. There is no aortic stenosis.There is no aortic regurgitation. Mitral Valve The mitral valve is structurally normal. There is no mitral stenosis.There is trace mitral regurgitation. Tricuspid Valve The tricuspid valve is structurally normal. There is no tricuspidstenosis. There is mild tricuspid regurgitation. Pulmonic Valve The pulmonic valve is not well visualized. There is no valvular pulmonicstenosis. There is no pulmonic valve regurgitation. Great Arteries The aortic root is of normal size. No abnormalities are identified. Theascending aorta is not well visualized. The pulmonary artery is not wellvisualized. Venous Inferior vena cava is normal in size. Inferior vena cava collapse greaterthan 50% with respiration. Pericardium/Pleural The pericardium appears normal. Hemodynamics Left ventricular diastolic function is normal. The estimated right atrialpressure is 3mmHg. The peak right ventricular systolic pressure is 20 mmHg. Left ventricular diastolic function is normal. Ejection Fraction 2D Measurements Volumes LV Biplane EF: 57.6 % IVSd: 1.0 cm EDV Biplane: 97.2ml LVPWd: 1.0 cm EDV BiplaneIndex: 52.1 ESV Biplane: 41.2ml ESV BiplaneIndex: 22.1 Doppler TR max deuce: 205.3 cm/sec RVSP(TR): 19.9 mmHg LV V1 VTI: 20.2 cm Ao V2 VTI: 22.7 cm Ao Max: 114.1 cm/sec Ao valve max: 5.2 mmHg MV E max deuce: 69.7 cm/sec MV A max deuce: 55.3 cm/sec MV E/A: 1.3 Dimensionless index Aov: 0.89 I WMSI = 1.00 % Normal = 100 SegmentsSize X - Cannot 2 - 4 - 1-2small Interpret 1 - Normal Hypokinetic 3 - Akinetic Dyskinetic 3-5moderate 5 - 6-14large Aneurysmal 15-16diffuse Shawn Hurtado MD ECHO ORDERABLES documented in this encounter Visit Diagnoses Diagnosis TIA (transient ischemic attack) Unspecified transient cerebral ischemia documented in this encounter Care Teams Acid Recovery Operator Relationship Specialty Start Date End Date Lara Simeon APRN [address] [place] [id number] PCP - General 10/17/12 documented as of this encounter
--- OUTSIDE RECORDS SUMMARY | 2024-01-07 14:23 | XMS_ITS | Encounter Summary ---
Author Organization [facility] [place] [address] Care Team Providers Care Director Of Orthopedics Name Role Phone Lara Simeon APRN Primary Care Provider [phone] Encounter Details Date Type Department Care Team (Late st Contact Info) Description 04/28/2022 Telephone Cardiology at [address] [phone] Lucinda Le Social History Tobacco Use Types Packs/Day Years Used Date Smoking Tobacco: Never Sex and Gender Information Value Date Recorded Sex Assigned at Not on file Gender Identity Not on file Sexual Orientation Not on file documented as of this encounter Miscellaneous Notes * Telephone Encounter - Lucinda Le - 04/28/2022 10:04 AM EST Patient's , Marisa called to schedule an echocardiogram before the end of the year due to insurance issues. Scheduled appointment for 05/07/22. Marisa is aware we are located in [place], [place]. She will have [facility] fax the order, authorization & demographics to us. Marisa can be reached at [phone] documented in this encounter Plan of Treatment Not on file documented as of this encounter Visit Diagnoses Not on filedocumented in this encounter Care Teams Director Of Orthopedics Relationship Specialty Start Date End Date Lara Simeon APRN [address] [place] [address] PCP - General 10/17/12 documented as of this encounter
--- OUTSIDE RECORDS SUMMARY | 2024-01-07 14:23 | XMS_ITS | Encounter Summary ---
Author Organization [facility] [place] [address] Care Team Providers Care Probation Agent Name Role Phone Lara Simeon APRN Primary Care Provider [phone] Encounter Details Date Type Department Care Team (Late st Contact Info) Description 07/06/2023 4:00 PM EST Telehealth notes only Palliative Medicine at [facility] [place] [address] Yulisa Underwood MSW Social History Tobacco Use Types Packs/Day Years Used Date Smoking Tobacco: Never Sex and Gender Information Value Date Recorded Sex Assigned at Not on file Gender Identity Not on file Sexual Orientation Not on file documented as of this encounter Miscellaneous Notes * Consult Note - Yulisa Underwood MSW - 07/06/2023 4:00 PM EST Outpatient Palliative Medicine LANDSCAPER Visit Patient: Lc Hoyt : 1965 Date: 07/06/2023 ID: Lc Hoyt is a 57 y.o. male from [facility] whose spouse is a patient in the Palliative Care outpatient clinic. This Palliative Medicine LANDSCAPER is asked by Raymond Wagoner DO to consult for critical care nurse specialist support. Lc was alone for the duration of our tele-health video visit today. We discussed the role of this Palliative Care LANDSCAPER including short-term emotional support and counseling, resource identification, and assistance with advance care planning. I noted that our clinic cares for patients and families as an interdisciplinary team, and that I do not meet individually with care partners unless the patient is also periodically meeting with a Palliative assessment clinician. This LANDSCAPER also reviewed privacy and confidentiality as well as mandated reporting in specific situations/scenarios. [place] LANDSCAPER DISCLOSURE: This Palliative Care LANDSCAPER reviewed my professional qualifications and experience as a licensed independent clinical social services coordinator in the [facility] with the patient today. A copy of my credentials; a listing of actions that constitute unprofessional conduct according to [place] statutes; andthe method for making a consumer inquiry or filing a complaint with the Office of Professional Regulation was given to the patient on this date. SOCIAL CONTEXT: Lc is a father to two adult children: a 31 y/o son and a 28 y/o daughter. His , the patient,is a step-mother to Lc's two children, and has loved them as her own for many years. 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 UNDERSTANDING OF ILLNESS AND PROGNOSTIC AWARENESS: Lc has an accurate understanding that his 's serious illness is life- limiting with an uncertain prognosis. He is aligned with his 's choice to avoid systemic treatment for her cancer, and expressed gratitude she has been open to interventions such as radiation therapy to stop the progression of aggressive tumors. PSYCHOSOCIAL CONCERNS Caregiver Concerns: Lc and his have been through many stressful situations with her serious illness, including many stressful hospitalizations in the last several months. Lc's is currently receiving inpatient care at [facility] near their home in [facility], and Lc expressed relief that the current care his is receiving feels comprehensive and helpful. He is eager to see her walking again, and hopes she can return home soon. Lc shared about his role as an advocate to his , and acknowledged the secondary losses he has been navigating since her diagnosis in February of 2022. His 's physical limitations have increased Lc's share of the daily tasks to maintain the lives and home, and he is experiencing critical care nurse specialist strain related to these changes in roles and responsibilities (it can be a struggle). 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 He was open to developing a therapeutic rapport with this LANDSCAPER with the hope of safely exploring his emotional wellbeing (metaphor of the box), and we have made a goal together to use upcoming sessions for exploring and processing Lc's emotions andcoping strategies. 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 He experiences emotional and logistical stress and strain in his role as a critical care nurse specialist, and desired to meet with this LISCW for counseling and support with these challenges. We have made a plan to meet again in two weeks to continue the conversation that was started today. Follow-Up: 07/19/23, at 10:00am via tele-health video visit (send link to: [email or web address]) Palliative continuity provider(s): Yulisa Underwood [facility] Initial visit or follow-up visit? (select one) Initial visit Visit with (select all that apply): talent acquisition partner Reason for visit (select all that apply): Coping related to serious illness, Psychosocial Assessment, and Psychosocial Intervention documented in this encounter Plan of Treatment Not on file documented as of this encounter Visit Diagnoses Not on filedocumented in this encounter Care Teams Probation Agent Relationship Specialty Start Date End Date Lara Simeon APRN [address] [place] [address] PCP - General 10/17/12 documented as of this encounter
--- OUTSIDE RECORDS SUMMARY | 2024-01-07 14:23 | XMS_ITS | Clinical Summary ---
Author Organization [facility] Address [address] [place] [address] Care Team Providers Care Bull Chain Operator Name Role Phone Unknown, Provider Primary Care Provider Encounters Date Type Department Care Team Description 01/07/2024 Lab Requisition [facility] Pathology & Laboratory [facility] [address] [place] [address] Outr Resulting Lab, Provider 01/07/2024 Lab Requisition [facility] Pathology & Laboratory [address] [address] Outr Resulting Lab, Provider from Last 3 Months Social History Tobacco Use Types Packs/Day Years Used Date Smoking Tobacco: Never Assessed Sex and Gender Information Value Date Recorded Sex Assigned at Not on file Gender Identity Not on file Sexual Orientation Not on file Plan of Treatment Health Maintenance Due Date Last Done Comments Hepatitis C Screen 1965 Hepatitis B Vaccine (1 of 3 - 19+ 3-dose series) 11/28 COVID-19 Vaccine ( season) 2023 Care Teams Bull Chain Operator Relationship Specialty Start Date End Date Unknown, Provider, PCP - General 04/16/22
--- OUTSIDE RECORDS SUMMARY | 2024-01-07 14:23 | XMS_ITS | Encounter Summary ---
Author Organization [facility] [place] [address] Care Team Providers Care Fabricator Foam Rubber Name Role Phone Lara Simeon APRN Primary Care Provider [phone] Encounter Details Date Type Department Care Team (Late st Contact Info) Description 08/02/2023 9:00 AM EDT Notes Only Palliative Medicine at [facility] [place] [address] Yulisa Underwood MSW Social History Tobacco Use Types Packs/Day Years Used Date Smoking Tobacco: Never Sex and Gender Information Value Date Recorded Sex Assigned at Not on file Gender Identity Not on file Sexual Orientation Not on file documented as of this encounter Progress Notes * Yulisa Underwood MSW - 08/02/2023 9:00 AM EDT Outpatient Palliative Medicine PHARMACEUTICAL OPERATOR Visit Patient: Lc Hoyt : 1965 Date: 07/06/2023 ID: Lc Hoyt is a 57 y.o. male from [facility] whose spouse is a patient in the Palliative Care outpatient clinic. This Palliative Medicine PHARMACEUTICAL OPERATOR is asked by Raymond Wagoner DO to consult for medicare insurance specialist support. Lc was joined by his , Marisa, for the duration of our tele-health video visit today. PSYCHOSOCIAL CONCERNS Lc and Marisa arrived together for Lc's visit today, and shared they are seeking couples counseling as they navigate Marisa's illness as a dyad. This PHARMACEUTICAL OPERATOR is able to engage in couples counseling, and we discussed a plan to do so as a group during Lc's previously scheduled individual session with this PHARMACEUTICAL OPERATOR. Lc shared his perspective he wants to make the most his time as a dyad with Marisa alongside her serious illness, including enjoying time together, learning new skills to strengthen their relationship, and increasing the richness of their current relationship which he described as stressed and strained. He is hoping to increase his interactions with Marisa, especially through laughter and adventures(there is a richness that is missing). Marisa shared her perspective she is concerned Lc's myriad duties and responsibilities are overwhelming him, and often prevent the couple from connecting authentically as partners. 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 This PHARMACEUTICAL OPERATOR also acknowledged the losses within Marisa and Lc's dyad, and especially that of Marisa as the youssef and integrated logistics support manager of their farm. RECOMMENDATIONS/PLAN: This PHARMACEUTICAL OPERATOR has asked the couple to think about the myriad options for their farm between sessions, and to begin creating a list of fun and pleasurable activities they might consider engaging in together in the coming weeks/months. As today was largely focused on developing a therapeutic rapport, this PHARMACEUTICAL OPERATOR has scheduled a follow-up visit next week to continue the conversation we started today. 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 Lc and Marisa are experiencing stress and strain in their marriage related to Marisa's serious illness, and desired to meet with this [facility] for couples counseling regarding these stressors. Both Lc and Marisa were open to and capable of engaging in counseling with this [facility] today, and we have made a plan to meet again in one week. Follow-Up: 08/13/23, at 10:00am via tele-health video visit (send link to: [email or web address]) Palliative continuity provider(s): Yulisa Underwood [facility] Initial visit or follow-up visit? (select one) Follow-up visit Visit with (select all that apply): Patient and human resources partner Reason for visit (select all that apply): Coping related to serious illness, Grief and bereavement support, Psychosocial Assessment, and Psychosocial Intervention documented in this encounter Plan of Treatment Not on file documented as of this encounter Visit Diagnoses Not on filedocumented in this encounter Care Teams Fabricator Foam Rubber Relationship Specialty Start Date End Date Lara Simeon APRN [address] [place] [address] PCP - General 10/17/12 documented as of this encounter
--- OUTSIDE RECORDS SUMMARY | 2024-01-07 14:23 | XMS_ITS | Encounter Summary ---
Author Organization [facility] Address [facility] [place] [address] Care Team Providers Care Office Associate Name Role Phone Lara Simeon APRN Primary Care Provider [phone] Encounter Details Date Type Department Care Team (Late st Contact Info) Description 05/15/2014 Telephone [place] [address] Karlee Burk, RN [facility] [place] [address] Social History Tobacco Use Types Packs/Day Years Used Date Smoking Tobacco: Never Sex and Gender Information Value Date Recorded Sex Assigned at Not on file Gender Identity Not on file Sexual Orientation Not on file documented as of this encounter Miscellaneous Notes * Telephone Encounter - Karlee Burk, RN - 05/15/2014 12:25 PM EST Telephone call form Lc. He is traveling to [place] May 3 x 2 weeks. He is currently in [facility] and will not be in [facility] before travel. Business travel , software stuff. Anticipates travel out of the city for more Travel potentially to malaria risk areas. Reviewed meds and allergies. Reviewed Michelle Carvalho's note from 2012 and his current immunization records. Immunization History Administered Date(s) Administered ??? Enhanced Inactivated Polio 11/03/2012 ??? Hep A/Hep B 11/03/2012 ??? Td, adult 05/17/2004 ??? Typhoid, VICP 11/03/2012 ??? Yellow Fever Vaccine 11/03/2012 Agree with Michelle Carvalho's recommendation from 2012 - he is in the age group that he might not be covered for MMR - we have advised either serology or revaccination. She also recommended TDaP Additionally I am recommending menactra for this trip. He states I'm not really into vaccines, Don't believe in them, worries about safetly and mercury exposure. Clarified that none of the recommended vaccines contain mercury or preservative. Have advised that he try to access immunizations before travel. I am not sure that he will want to do this. Offered to find travel clinic in his area, For now he requests malaria med[place] He expresses understanding of my concerns. documented in this encounter Plan of Treatment Not on file documented as of this encounter Visit Diagnoses Not on filedocumented in this encounter Care Teams Office Associate Relationship Specialty Start Date End Date Lara Simeon APRN [address] [place] [address] PCP - General 10/17/12 documented as of this encounter
--- OUTSIDE RECORDS SUMMARY | 2024-01-07 14:23 | XMS_ITS | Referral Summary ---
Author Organization [facility] Address [address] [place] [address] Care Team Providers Care Doll Wigs Hackler Name Role Phone Unknown, Provider Primary Care Provider Encounters Date Type Department Care Team Description 01/07/2024 Lab Requisition [facility] Pathology & Laboratory [facility] [address] [place] [address] Outr Resulting Lab, Provider 01/07/2024 Lab Requisition [facility] Pathology & Laboratory [address] [address] Outr Resulting Lab, Provider from Last 3 Months Social History Tobacco Use Types Packs/Day Years Used Date Smoking Tobacco: Never Assessed Sex and Gender Information Value Date Recorded Sex Assigned at Not on file Gender Identity Not on file Sexual Orientation Not on file Plan of Treatment Not on file Care Teams Doll Wigs Hackler Relationship Specialty Start Date End Date Unknown, Provider, PCP - General 04/16/22
--- OUTSIDE RECORDS SUMMARY | 2024-01-07 14:23 | XMS_ITS | Clinical Summary ---
Author Organization [facility] Address [facility] [place] [address] Care Team Providers Care Beet Topper Name Role Phone Lara Simeon APRN Primary Care Provider [phone] Allergies No known active allergies Medications Medication Sig Dispensed Refills Start Date End Date Status FOLIC ACID/VITAMIN B COMP W-C (B-COMPLEX WITH VITAMIN C ORAL) 02/13/2009 Acti ve lisinopril (PRINIVIL;ZESTRIL) 10 mg Tablet Take 10 mg by mouth daily. Active atovaquone-proguanil (MALARONE) 250-100 mg Tablet Take 1 tablet by mouth daily. Start day before travel to risk area, daily while there & for 7 days after 22 tablet 0 05/15/2014 Active Active Problems Problem Noted Date Diagnosed Date Hypertension (HTN) 05/15/2014 Travel foreign 11/04/2012 Immunizations Name Administration Dates Next Due Enhanced Inactivated Polio 11/03/2012 Hep A/B (TwinRix) 11/03/2012 TD Adult 05/17/2004 Typhoid, VICP 11/03/2012 Yellow Fever Vaccine 11/03/2012 Social History Tobacco Use Types Packs/Day Years Used Date Smoking Tobacco: Never Sex and Gender Information Value Date Recorded Sex Assigned at Not on file Gender Identity Not on file Sexual Orientation Not on file Last Filed Vital Signs Vital Sign Reading Time Taken Comments Blood Pressure 135/91 11/03/2012 2:38 PM EDT Pulse 93 11/03/2012 2:38 PM EDT Temperature 36.6 ??C (97.8 ??F) 11/03/2012 2:38 PM ED T Respiratory Rate 16 11/03/2012 2:38 PM EDT Oxygen Saturation - - Inhaled Oxygen Concentration - - Weight - - Height - - Body Mass Index - - Plan of Treatment Health Maintenance Due Date Last Done Comments CT Colonography 1965 Colonoscopy 1965 Colorectal Cancer Screening 1965 FIT DNA 1965 FIT 1965 Sigmoidoscopy (10 year) with FIT yearly 1965 Sigmoidoscopy 1965 HIV screen 11/29/1983 Hepatitis C Screening 11/29/1983 Lipid Screening 11/29/1983 Tdap adult 1984 Hepatitis B vaccine (0-59 yrs) (2) 12/01/20122012 Tetanus vaccine 05/17/2014 05/17/2004 Zoster vaccine (1 of 2) 11/29/2015 Advance Directive 2020 Covid-19 Vaccine ( - 2022- season) 2023 Influenza (Flu) vaccine (1 o f 1 - Influenza standard series) 01/16/2024 Care Teams Beet Topper Relationship Specialty Start Date End Date Lara Simeon APRN [address] [place], [place] [id number] PCP - General 10/17/12
--- OUTSIDE RECORDS SUMMARY | 2024-01-07 14:23 | XMS_ITS | Encounter Summary ---
Author Organization [facility] Address [address] [place] [address] Care Team Providers Care Carpenter Apprentice Name Role Phone Unknown, Provider Primary Care Provider [phone] Encounter Details Date Type Department Care Team (Late st Contact Info) Description 01/07/2024 Lab Requisition [facility] Pathology & Laboratory Medicine - [address] [address] Outr Resulting Lab, Provider Social History Tobacco Use Types Packs/Day Years Used Date Smoking Tobacco: Never Assessed Sex and Gender Information Value Date Recorded Sex Assigned at Not on file Gender Identity Not on file Sexual Orientation Not on file documented as of this encounter Plan of Treatment Scheduled Orders Name Type Priority Associated Diagnoses Orde r Schedule HIV 1/2 ANTIGEN AND ANTIBODY , 4TH GENERATION Lab Routine Ordered: 024 documented as of this encounter Visit Diagnoses Not on filedocumented in this encounter Care Teams Carpenter Apprentice Relationship Specialty Start Date End Date Unknown, Provider, PCP - General 04/16/22 documented as of this encounter
--- OUTSIDE RECORDS SUMMARY | 2024-01-07 14:23 | XMS_ITS | Encounter Summary ---
Author Organization [facility] Address [address] [place] [address] Care Team Providers Care Housing Specialist Name Role Phone Unknown, Provider Primary Care Provider Encounter Details Date Type Department Care Team (Late st Contact Info) Description 05/09/2022 Lab Requisition [facility] Pathology & Laboratory Medicine - [address] [address] Outr Resulting Lab, Provider Social History Tobacco [...] Procedure Name Priority Date/Time Associated Diagnosis Comments LYME AB Routine 05/08/2022 13:00 EST documented in this encounter Results * LYME AB (05/08/2022 13:00 EST) Lyme Ab Negative Negative 05/12/2022 11:09 EST [facility] Blood VENOUS BLOOD / Unknown 05/08/2022 13:00 EST 05/11/2022 16:35 EST Provider Outr Resulting Lab IMMUNOLOGY A ND SEROLOGY ORDERABLES [facility] [address] [place] [address] documented in this encounter Visit Diagnoses Not on filedocumented in this encounter Care Teams Housing Specialist Relationship Specialty Start Date End Date Unknown, Provider, PCP - General 04/16/22 documented as of this encounter
--- OUTSIDE RECORDS SUMMARY | 2024-01-07 14:23 | XMS_ITS | Encounter Summary ---
Author Organization [facility] [place] [address] Care Team Providers Care Electrical And Instrument Technician Name Role Phone Lara Simeon APRN Primary Care Provider [phone] Encounter Details Date Type Department Care Team (Late st Contact Info) Description 08/13/2023 10:00 AM EDT Notes Only Palliative Medicine at [facility] [place] [address] Yulisa Underwood MSW Social History Tobacco Use Types Packs/Day Years Used Date Smoking Tobacco: Never Sex and Gender Information Value Date Recorded Sex Assigned at Not on file Gender Identity Not on file Sexual Orientation Not on file documented as of this encounter Progress Notes * Yulisa Underwood MSW - 08/13/2023 10:00 AM EDT Outpatient Palliative Medicine MUNITIONS HANDLER Visit Patient: Ankit Hoyt : 1965 Date: 07/06/2023 ID: Ankit Hoyt is a 57 y.o. male from [facility] whose spouse is a patient in the Palliative Care outpatient clinic. This Palliative Medicine MUNITIONS HANDLER is asked by Raymond Wagoner DO to consult for career law clerk support. Ankit was joined by his , Marisa, for the duration of our tele-health video visit today. PSYCHOSOCIAL CONCERNS Since our last visit for couples counseling (08/02/23), Ankit and Marisa shared their assessment Marisa isdoing much better from a physical perspective including moving around more easily (going to the grocery store, ambulating without the wheelchair, cooking) and improved lab results. They are also feeling relief that a local individual (Carl) has agreed to work full-time with Ankit [place] [facility] (I feel like I avoided a potential disaster). While thinks may be improving for the couple, Ankit noted he is feeling emotional pain and hurt related to Marisa's comments that her quality of life is defined as, freedom from being the recipient of my 's anger, strife, and resentment. Ankit acknowledged he does get frustrated and impatientat times management his remote work and Marisa's care needs, though was not as sure whether he is experiencing resentment. He did note feeling sadness he was unable to engage in the support of his family network the first year after Marisa's diagnosis, though he also acknowledged he has stuck with her and done his best to manage the increased stress and strain in their lives related to Marisa's illness. This MUNITIONS HANDLER provided psycho-education regarding the window of tolerance, hyperarousal, and hypoarousal as frameworks for explaining how both Ankit and Marisa may experience emotional reactivity. They both described behaviors that may assist them as individuals in maintaining their own window of tolerance, such as Ankit having un-interrupted blocks of time when he can be solely focused on his professional work. Strategies: pairing bio breaks with check-ins? RECOMMENDATIONS/PLAN: This MUNITIONS HANDLER has asked the couple to think about opportunities for explicitly communicating needs before Ankit engages in his daily professional role, and building in opportunities for explicit connection breaks during these working hours. We also plan to further explore the cognitive distortions (black/white thinking) that are affecting how this couple engage and support each other alongside theserious illness affecting them both. 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 Ankit and Marisa are experiencing stress and strain in their marriage related to Marisa's serious illness, and desired to meet with this [facility] for couples counseling regarding these stressors. Both Ankit and Marisa were open to and capable of engaging in counseling with this MUNITIONS HANDLER today, and we have made a plan to meet again in two weeks to continue focusing on communication strategies, challenging cognitive distortions, and building connection and resilience within the relationship alongside the stressors of Marisa's serious illness. Follow-Up: 08/27/23 at 9:30am via tele-health video visit (send link to: [email or web address]) Palliative continuity provider(s): Yulisa KENNEDYSW Initial visit or follow-up visit? (select one) Follow-up visit Visit with (select all that apply): Patient and missile inspector Reason for visit (select all that apply): Coping related to serious illness, Psychosocial Assessment, and Psychosocial Intervention documented in this encounter Plan of Treatment Not on file documented as of this encounter Visit Diagnoses Not on filedocumented in this encounter Care Teams Electrical And Instrument Technician Relationship Specialty Start Date End Date Lara Simeon APRN [address] [place] [address] PCP - General 10/17/12 documented as of this encounter
--- OUTSIDE RECORDS SUMMARY | 2024-01-07 14:23 | XMS_ITS | Encounter Summary ---
Author Organization [facility] [place] [address] Care Team Providers Care Spout Worker Name Role Phone Lara Simeon APRN Primary Care Provider [phone] Encounter Details Date Type Department Care Team (Late st Contact Info) Description 07/19/2023 10:00 AM EST Notes Only Palliative Medicine at [facility] [place] [address] Yulisa Underwood MSW Social History Tobacco Use Types Packs/Day Years Used Date Smoking Tobacco: Never Sex and Gender Information Value Date Recorded Sex Assigned at Not on file Gender Identity Not on file Sexual Orientation Not on file documented as of this encounter Progress Notes * Yulisa Underwood MSW - 07/19/2023 10:00 AM EST Outpatient Palliative Medicine GOLF COURSE LABORER Visit Patient: Lc Hoyt : 1965 Date: 07/06/2023 ID: Lc Hoyt is a 57 y.o. male from [facility] whose spouse is a patient in the Palliative Care outpatient clinic. This Palliative Medicine GOLF COURSE LABORER is asked by Raymond Wagoner DO to consult for eye care professional support. Lc was alone for the duration of our tele-health video visit today. PSYCHOSOCIAL CONCERNS Caregiver Concerns: Since our last visit (07/06/23), Lc's spouse has returned home from a 2-week inpatient hospitalization at [facility]. He is grateful for this positive change in the couple's circumstances, and expressed hope his 's condition will continue to improve over time as she recovers from edema and difficulty breathing. 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 Lc is using his strong Protestant silvia as a source of support to help him sustain his many roles and responsibilities, though he worries things are getting dropped more than he would like. We also explored Lc's feelings of regret and grief related to choices his made earlier in her course of illness. Much support and validation provided today. RECOMMENDATIONS/PLAN: We discussed action steps Lc can take to alleviate some of his stress, and this GOLF COURSE LABORER encouragedhikerrie to use the metaphor of a tea kettle in choosing opportunities to let off stem and keep the water from boiling over. He may begin identifying a daily word to summarize his experiences, which this GOLF COURSE LABORER affirmed and encouraged. We have made a plan to meet again in two weeks. 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 He experiences emotional and logistical stress and strain in his role as a eye care professional, and [facility] and support with these challenges. Lc confirmed he benefits from having a private and confidential space to explore his emotions and coping, and we have made a plan to meet again for this purpose in two weeks. Follow-Up: 08/02/23, at 9:00am via tele-health video visit (send link to: ) Palliative continuity provider(s): Yulisa Underwood [facility] Initial visit or follow-up visit? (select one) Follow-up visit Visit with (select all that apply): partner marketing manager Reason for visit (select all that apply): Coping related to serious illness, Grief and bereavement support, Psychosocial Assessment, and Psychosocial Intervention documented in this encounter Plan of Treatment Not on file documented as of this encounter Visit Diagnoses Not on filedocumented in this encounter Care Teams Spout Worker Relationship Specialty Start Date End Date Lara Simeon APRN [address] [place] [address] PCP - General 10/17/12 documented as of this encounter
--- OUTSIDE RECORDS SUMMARY | 2024-01-07 14:23 | XMS_ITS | Encounter Summary ---
Author Organization [facility] [place] [address] Care Team Providers Care Tenderizer Tender Name Role Phone Lara Simeon APRN Primary Care Provider [phone] Encounter Details Date Type Department Care Team (Late st Contact Info) Description 04/30/2022 Telephone Cardiology at [address] [address] Lucinda Le Social History Tobacco Use Types Packs/Day Years Used Date Smoking Tobacco: Never Sex and Gender Information Value Date Recorded Sex Assigned at Not on file Gender Identity Not on file Sexual Orientation Not on file documented as of this encounter Miscellaneous Notes * Telephone Encounter - Lucinda Le - 04/30/2022 10:31 AM EST Spoke with patient, he had echo yesterday. Cancelled echo on 05/07 * Telephone Encounter - Lucinda Le - 04/30/2022 10:31 AM EST ----- Message from Rita Clemens sent at 04/29/2022 5:02 PM EST ----- MESSAGE CENTER: Reason: Appointment Cancellation PCP: Lara Simeon APRN / Treating provider: Not specified Message: Patient no longer needs this appointment Caller Name (If other than patient): Rosa Almanzarnie Relationship to Patient (if other than self): Callback number: [phone] (home) Best time you are available: any Caller is aware that message will be addressed on the next business day: Y documented in this encounter Plan of Treatment Not on file documented as of this encounter Visit Diagnoses Not on filedocumented in this encounter Care Teams Tenderizer Tender Relationship Specialty Start Date End Date Lara Simeon APRN [address] [place] [address] PCP - General 10/17/12 documented as of this encounter
--- OUTSIDE RECORDS SUMMARY | 2024-01-07 14:24 | XMS_ITS | Continuity of Care Document ---
Author Organization [facility] Address [address] [place] [address]- Care Team Providers Care Administrative Personal Assistant Name Role Phone UNKNOWN, DOCTOR Primary Care Physician [phone] Encounter Date(s): 04/25/22 - 04/25/[address] [address] Encounter Diagnosis Paresthesia(Discharge Diagnosis) - 04/25/22 Blurred vision(Discharge Diagnosis) - 04/25/22 Discharge Disposition: OP AMA Attending Physician: DO CARREON JOSHUA D Admitting Physician: DO CARREON JOSHUA D Referring Physician: DO CARREON JOSHUA D Allergies, Adverse Reactions, Alerts No Known Medication Allergies Assessment and Plan Extracted from: Title:Clinical Document Author:LAITH Mobley, Sameer Carias Date:04/25/22 Pt. left AMA stating that is he has been waiting for hours with no food and he has not been ordered specific tests that he wanted done. (Echocardiogram) Pt. was explained that he would been seen by a neurologist and that other tests may be ordered upon assessment. Pt. states he feeling better and will follow up with his own physician. ....Pt. was educated on the risks of leaving AMA before signing AMA forms. Medications lisinopril 10 mg oral tablet 5 mg = 0.5 tab, Oral, Daily, 0 Refill(s) Start Date: 04/25/22 Status: Ordered Mental Status 04/25/22 Gait Appropriate for age Procedures Procedure Date Related Diagnosis Body Site Status Hernia Completed Results Laboratory List Name Date C Reactive Protein (CRP) 04/25/22 CBC and Differential 04/25/22 CK MB Fraction 04/25/22 Comprehensive Metabolic Panel (CMP) 04/16 Creatine Kinase (CPK) 04/25/22 ESR 04/25/22 Lipoprotein Profile 04/25/22 PT with INR (Prothrombin Time with INR) 04/25/22 PTT 04/25/22 Troponin I High Sensitivity 04/25/22 Accu-Chek Glucose (ACCU-CHEK GLUCOSE) Hematology Most recent to oldest [Reference Range]: 1 White Cell Count [4.0-10.0 K/mcL] 6.6 K/ mcL (04/25/22 1:33 PM) Red Cell Count [4.70-6.10 x10^6/mcL] 4.5 3 x10^6/mcL *LOW* (04/25/22 1:33 PM) Hemoglobin [12.0-16.0 g/dL] 13.3 g/dL (04/25/22 1:33 PM) Hematocrit [37.0-47.0 %] 39.0 % (04/25/22 1:33 PM) Platelet Count [150-400 K/mcL] 195 K/mcL (04/25/22 1:33 PM) MCV [80.0-94.0 fL] 86.1 fL (04/25/22 1:33 PM) MCH [27.0-31.0 pg] 29.4 pg (04/25/22 1:33 PM) MCHC [33.0-37.0 g/dL] 34.1 g/dL (04/25/22 1:33 PM) RDW [11.5-14.5 %] 12.3 % (04/25/22 1:33 PM) Nucleated RBCs [0 /100(WBCs)] 0 /100(WBC s) (04/25/22 1:33 PM) Absolute Nucleated RBC Count [0.00-0.01 x10^3/mcL] 0.00 x10^3/mcL (04/25/22 1:33 PM) Granulocytes [42-75 %] 55 % (04/25/22 1:33 PM) Immature Granulocytes [0-4 %] 0 % (04/25/22 1:33 PM) Lymphocytes [21-51 %] 29 % (04/25/22 1:33 PM) Monocytes [2-8 %] 12 % *HI* (04/25/22 1:33 PM) Eosinophil [0-5 %] 3 % (04/25/22 1:33 PM) Basophil [0-2 %] 1 % (04/25/22 1:33 PM) Absolute Neutrophil Count [1.7-7.5 x10^3 /mcL] 3.7 x10^3/mcL (04/25/22 1:33 PM) Absolute Immature Granulocyte Count [0.0 0-0.03 x10^3/mcL] 0.0 x10^3/mcL (04/25/22 1:33 PM) Absolute Lymphocyte Count [1.2-4.9 x10^3 /mcL] 1.9 x10^3/mcL (04/25/22 1:33 PM) Absolute Monocyte Count [0.20-1.00 x10^3 /mcL] 0.78 x10^3/mcL (04/25/22 1:33 PM) Absolute Eosinophyl Count [0.05-0.80 x10 ^3/mcL] 0.17 x10^3/mcL (04/25/22 1:33 PM) Absolute Basophil Count [0.00-0.30 x10^3 /mcL] 0.0 x10^3/mcL (04/25/22 1:33 PM) Differential Type AUTOMATED DIFF PERFO RMED (04/25/22 1:33 PM) ESR [0-20 mm/hr] 4 mm/hr (04/25/22 1:33 PM) Coagulation Most recent to oldest [Reference Range]: 1 PT [11.5-14.4 seconds] 13.7 seconds (04/25/22 1:33 PM) INR [0.9-1.2] 1.0 1 (04/25/22 1:33 PM) PTT [22.0-34.8 seconds] 29.5 seconds (04/25/22 1:33 PM) 1Result Comment: BASED ON MEDICAL LITERATURE DATA AN INR OF 2.0 - 3.0 MAY BE CONSIDERED FOR PROPHYLAXIS/TREATMENT OF VENOUS THROMBOSIS AND PULMONARY EMBOLISM, AND PREVENTION OF SYSTEMIC EMBOLISM. AN INR OF 2.5 - 3.5 MAY BE CONSIDERED FOR MECHANICAL PROSTHETIC VALVES. Chemistry Most recent to oldest [Reference Range]: 1 Sodium Level [138-148 mmol/L] 139 mmol/L (04/25/22 1:33 PM) Potassium Level [3.6-5.2 mmol/L] 4.0 mmo l/L (04/25/22 1:33 PM) Chloride Level [100-108 mmol/L] 108 mmol /L (04/25/22 1:33 PM) CO2 [21-32 mmol/L] 29 mmol/L (04/25/22 1:33 PM) Glucose Level [70-99 mg/dL] 99 mg/dL (04/25/22 1:33 PM) Glucose POC [70-99 mg/dL] 93 mg/dL 1 (04/25/22 1:31 PM) BUN [7-18 mg/dL] 16 mg/dL (04/25/22 1:33 PM) Creatinine [0.6-1.3 mg/dL] 1.3 mg/dL (04/25/22 1:33 PM) GFR, [>59 mL/min/1.73 m 2] >60 mL/min/1.73 m2 (04/25/22 1:33 PM) GFR, Non [>59 mL/min/1. 73 m2] >60 mL/min/1.73 m2 (04/25/22 1:33 PM) Albumin Level [3.4-5.0 g/dL] 3.8 g/dL (04/25/22 1:33 PM) Alkaline Phosphatase. [45-117 IntlUnit/L ] 116 IntlUnit/L (04/25/22 1:33 PM) AST [10-31 IntlUnit/L] 12 IntlUnit/L (04/25/22 1:33 PM) ALT [12-78 IntlUnit/L] 20 IntlUnit/L (04/25/22 1:33 PM) Total Bilirubin [0.0-1.0 mg/dL] 0.5 mg/d L (04/25/22 1:33 PM) Calcium Level [8.5-10.1 mg/dL] 8.6 mg/dL (04/25/22 1:33 PM) Total Protein [6.4-8.2 g/dL] 6.5 g/dL (04/25/22 1:33 PM) C Reactive Protein [<0.80 mg/dL] <0.29 m g/dL (04/25/22 1:33 PM) Cholesterol. [<200 mg/dL] 156 mg/dL 2 (04/25/22 1:33 PM) HDL [40-60 mg/dL] 45 mg/dL 3 (04/25/22 1:33 PM) LDL (Calculated) [<129 mg/dL] 88 mg/dL 4 (04/25/22 1:33 PM) Triglyceride. [<150 mg/dL] 116 mg/dL 5 (04/25/22 1:33 PM) Creatinine Kinase [0-177 IntlUnit/L] 119 IntlUnit/L (04/25/22 1:33 PM) CKMB Fraction [0-4 ng/mL] 1 ng/mL (04/25/22 1:33 PM) Troponin I High-Sensitivity [<80 ng/L] 6 ng/L (04/25/22 1:33 PM) 1Result Comment: RN Notified 2Result Comment: PER NCEP/NHBLI/NIH GUIDELINES <200 MG/DL DESIRABLE 200-239 MG/DL BORDERLINE HIGH >239 MG/DL HIGH 3Result Comment: PER NCEP/NHBLI/NIH GUIDELINES <40 MG/DL LOW >59 MG/DL HIGH 4Result Comment: PER NCEP/NHBLI/NIH GUIDELINES <100 MG/DL OPTIMAL 100-129 MG/DL NEAR OPTIMAL 130-159 MG/DL BORDERLINE HIGH 160-189 MG/DL HIGH >189 MG/DL VERY HIGH 5Result Comment: PER NCEP/NHBLI/NIH GUIDELINES <150 MG/DL NORMAL 150-199 MG/DL BORDERLINE HIGH 200-499 MG/DL HIGH >499 MG/DL VERY HIGH Vital Signs Most recent to oldest [Reference Range]: 1 2 3 Weight Dosing [10-136 kg] 74.9 kg (04/25/22 1:56 PM) Blood Pressure [90-140/60-90 mmHg] 116/86mmHg (04/25/22 4:30 PM) SpO2 100 % (04/25/22 4:30 PM) Temperature Oral [36-37.9 Deg C] 36.7 Deg C (04/25/22 1:56 PM) Peripheral Pulse Rate [60-100 bpm] 56 bpm *LOW* (04/25/22 4:30 PM) Respiratory Rate [14-20 br/min] 15 br/min (04/25/22 4:30 PM) Mean Arterial Pressure, Cuff 96 mmHg (04/25/22 4:30 PM) Level of Consciousness Alert (04/25/22 4:30 PM) Alert (04/25/22 3:00 PM) Alert (04/25/22 2:30 PM) Orientation Assessment Oriented x 4 (04/25/22 4:30 PM) Oriented x 4 (04/25/22 3:00 PM) Oriented x 4 (04/25/22 2:30 PM) Social History Social History Type Response Tobacco Smoking tobacco use: Never (less than 100 in lifetime). N/A Smoking Cessation Education. N/A Education on Smoking Cessation Programs. Sex Patient Care team information Personnel Name: UNKNOWN, , DOCTOR Address: Address: [address] [place] [id number]
[2024-01-07 19:21] LABS: PSA, Screening 0.6 ng/mL (<=3.5)
[2024-01-08 09:02] LABS: HIV-1/2 Ag & Ab Screen Negative (Negative)
[2024-01-10 10:04] LABS: Hepatitis C Ab w Rflx HCV PCR Negative (Negative)
== END 2024-01-07 14:22 | disposition home or self-care (01) ==
LOC: LBO 14:21
PROVIDERS: PCP Nurse Practitioner Adult Health; Visit Provider Nurse Practitioner Family
DX: Z00.00 Encounter for general adult medical examination without abnormal findings (principal); I10 Essential (primary) hypertension
CPT/HCPCS: 36415; 80053; 80061; 84153; 86803; 87389; 83036; 84443